=== PATIENT | male | born 1965 | race Two or more races ===

== ENCOUNTER → 2019-11-23 12:52 | Outpatient (CLI) | payer OTHER ==
[2019-11-23 13:34] LABS: INR 1.67 (0.85-1.17); PROTIME 19.5 SECONDS (11.6-15.0)
[2019-11-23 13:52] LABS: ALBUMIN 1.8 g/dL (3.4-5.0); BILIRUBIN - DIRECT 0.31 mg/dL (0.00-0.30); BILIRUBIN - INDIRECT 0.14 mg/dL (0.00-1.00); BILIRUBIN - TOTAL 0.45 mg/dL (0.2-1.3)
== END | disposition home or self-care (01) ==
LOC: D.LAB 11-04 08:30
PROVIDERS: ATTEND Pediatrics
DX: Z02.71 Encounter for disability determination (principal)